=== PATIENT | female | born 1960 | race Caucasian/White ===

== ENCOUNTER 2017-07-18 21:26 | Observation (INO) ==
[2017-07-18] MEDS ORDERED: SODIUM CHLORIDE 0.9% 500 ML IV STA (22:14)
--- NOTE | 2017-07-18 23:06 | Emergency Department Note ---
ITommy Emily, am scribing for, and in the presence of, Giovani Rockwell MD 22: 37. IMoiz Charles R, MD, personally performed the services described in this documentation, ascribed by Angelina Sanders in my presence, and it is both accurate and complete . Arrival - Arrival Chief Complaint: Syncope Stated Complaint: chest pain ED Nursing Triage Note: C/O Syncopal episodes on and off x 2 weeks. Pt reports that it happened today and her blood pressure was low. Pt reports that she has had an EKG, CT scan of the brain and a holter monitor was placed- Pt states that the results of the holter monitor haven't come back yet. Mode of Arrival: Ambulatory Limitations: No Limitations Source: Patient, Family Time Seen by Provider: 07/18/17 22:04 - History of Present Illness HPI Narrative: Pt is a 56 y/o female who came to ED for further evaluation of syncopal episodes that started "a while ago" but has worsened in past month. Pt notes she cannot have any exertion or stand without getting lightheaded, vision changes to blurry, weakness sets in and then passing out. Pt has a few seconds until she can recover from syncopal episode and if standing or has movement she has routine again of passing out. Pt had active syncopal episode when sat up in bed, and immediately getting lightheaded. Pt reports having no pains in ED, not even chest pain. During episode pt's heart rate increases. Pt was at work today with syncopal episodes increased and reports BP dropping fast. Pt also had syncopal episode in waiting room and in triage. Pt reports being put on holter monitor last week and taken off , in which has not received results yet from Dr. Hendrix in [place], [place]. Pt denies ever having an ECHO done. Pt smokes a pack of cigarettes every 2 days. Son reports pt having sxs once every 5-6 months for a while, but nothing has happened back to back like the recent two weeks. Onset (ago): unknown (worsened in last month's timeframe) Consistency: constant, intermittent Severity: moderate Severity scale (1-10): 6 Quality: other (weakness) Date of Last Menstrual Period: PM Allergies/Adverse Reactions: Allergies Allergy/AdvReac Type Severity Reaction Status Date / Time No Known Allergies Allergy Verified 07/18/17 21:38 Home Medications: Home Medications Medication Instructions Recorded Confirmed Type Amoxicillin/Clav Tab [Augmentin 875 mg PO BID 07/18/17 07/18/17 History Tab] Aspirin [Ecotrin] 81 mg PO DAILY 07/18/17 07/18/17 History Multivitamin [Multivitamins] 1 each PO DAILY 07/18/17 07/18/17 History Review of System - Review of System 12 point system: reviewed and no additional remarkable complaints except as stated - Review of System Constitutional: Present: weakness. Absent: chills, fever Eyes: Present: vision change (blurry) Respiratory: Absent: respiratory distress Cardiovascular: Present: syncope (several). Absent: chest pain Gastrointestinal: Absent: abdominal pain, nausea Genitourinary female: Absent: dysuria Musculoskeletal: Absent: back pain Skin: Absent: rash Neurological: Present: other (lightheadedness). Absent: headache, confusion Medical,Surgical,& Family Hx - Social History Smoking Status: Current every day smoker Frequency of Alcohol Use: None Type of Drug Use: None Exam Vital Signs: Vital Signs Temperature 98.7 F 07/18/17 21:39 Pulse Rate 83 07/18/17 22:05 Respiratory Rate 20 07/18/17 22:05 Blood Pressure 118/58 07/18/17 22:05 O2 Sat by Pulse Oximetry 97 07/18/17 22:05 - General General appearance: alert, in no apparent distress - Head Head exam: Present: atraumatic, normocephalic - Eye Eye exam: Present: PERRL, EOMI, nystagmus (with easily reproducible syncope upon sitting up in bed) - ENT ENT exam: Present: mucous membranes moist. Absent: mucous membranes dry - Neck Neck exam: Present: full ROM, trachea midline - Chest Chest inspection: Present: symmetric chest wall rise. Absent: tenderness - Respiratory Respiratory exam: Present: rhonchi (bilateral), wheezes - Cardiovascular Cardiovascular exam: Present: tachycardia (only increasing with reproducible syncope of sitting up in bed), murmur (2 out of 6) - Extremities Exam Extremities exam: Present: full ROM. Absent: pedal edema - Neurological Exam Neurological exam: Present: alert, oriented X3, CN II-XII intact, other (astatic ). Absent: motor sensory deficit - Psychiatric Psychiatric exam: Present: normal affect, normal mood - Skin Skin exam: Present: warm, dry Course - Consultations Consultation #1: Hospitalist will admit patient Time: 00:24 Results - Labs CBC & BMP: 07/18/17 23:02 07/18/17 23:02 Lab Results: I have reviewed the patients labs Labs: Laboratory Tests 07/18/17 07/18/17 23:02 23:02 WBC 7.6 RBC 4.48 Hgb 13.8 Hct 40.0 Plt Count 241 Neut % (Auto) 34.2 L Baso % (Auto) 0.9 H Urine Color Colorless Urine Appearance Clear Urine pH 7.0 Ur Specific [place] 1.001 Urine Blood Negative Urine Nitrate Negative Urine Urobilinogen < 2.0 H Urine Leukocytes Negative Ur Squamous Epith Cells Occasional Laboratory Tests 07/18/17 07/18/17 07/18/17 23:02 23:02 23:02 Sodium 142 Potassium 3.6 Chloride 107 Carbon Dioxide 30 Creatinine 0.80 BUN/Creatinine Ratio 18.00 Alkaline Phosphatase 104 Troponin I < 0.015 B-Natriuretic Peptide 12 Urine Opiates Screen Negative Ur Barbiturates Screen Negative Ur Phencyclidine Scrn Negative U Amphetamine/Methamph Negative U Benzodiazepines Scrn Negative U Cocaine Metab Screen Negative U Cannabinoids Screen Negative - Diagnostic Findings Procedure: CT - chest: image reviewed by me, report reviewed by me (CT PE negative), CT: image reviewed by me, report reviewed by me (CT head negative) Disposition Clinical Impression: Syncope and collapse, Tobacco abuse Case discussed with: patient, patient's family Disposition: Still a Patient Condition: Stable Time of Disposition: 00:25
[2017-07-18 23:15] LABS: Basophils # 0.1 10*3/uL (0.0-0.2); Basophils % 0.9 % (0.0-0.8); Eosinophils # 0.4 10*3/uL (0.0-0.87); Eosinophils % 4.7 % (0.00-10.9); Hemoglobin 13.8 GM/DL (12.0-16.0); Immature Granulocytes % 0.3 %; Immature Granulocytes Absolute 0.02 #; Lymphocytes # 3.8 10*3/uL (1.4-4.0); Lymphocytes % 50.5 % (21.3-54.2); Mean Corpuscular HGB Conc 34.5 GM/DL (32-36); Mean Corpuscular Hemoglobin 31 PG (27-34); Mean Corpuscular Volume 89.3 FL (87-102); Monocytes # 0.7 10*3/uL (0.11-0.8); Monocytes % 9.4 % (1.7-12.7); Neutrophils # 2.6 10*3/uL (1.4-7.4); Neutrophils % 34.2 % (38.7-73.9); Platelet Count 241 T/CUMM (130-400); Red Blood Count 4.48 MC/CUMM (3.8-5.5); Red Cell Distribution Width 13.8 % (9.3-17.3); White Blood Count 7.6 T/CUMM (4-12)
[2017-07-18 23:28] LABS: Apearance,Urine CLEAR (Clear); Bilirubin,Urine Negative (Negative); Blood, Urine Negative (Negative); Glucose,Urine (UA) Negative (Negative); Ketones,Urine Negative (Negative); Nitrite,Urine Negative (Negative); Protein,Urine Negative; Squamous Epithelial Cell,Urine Occasional /HPF (0-10); Urine Color Colorless (Yellow); Urine Specific Gravity 1.001 (1.001-1.035); Urine Urobilinogen < 2.0 EU/DL (0.2-1.0)
[2017-07-18 23:30] LABS: Alanine Aminotransferase 20 U/L (13-56); Albumin 3.6 G/DL (3.4-5.0); Alkaline Phosphatase 104 U/L (45-117); Aspartate Amino Transferase 23 U/L (0-37); Bilirubin,Total < 0.39 MG/DL (0.2-1.0); Blood Urea Nitrogen 15 MG/DL (7-18); Calcium 8.7 MG/DL (8.5-10.1); Glucose 103 MG/DL (74-106); Magnesium 2.2 MG/DL (1.8-2.4); Osmolality,Calculated 283.1 MOS/KG (273-304); Potassium 3.6 MMOL/L (3.5-5.1); Sodium 142 MMOL/L (136-145); Total Protein 6.8 G/DL (6.4-8.3); Troponin I Only < 0.015 NG/ML (0.00-0.045)
[2017-07-18 23:53] LABS: Barbiturates Screen,Urine Negative (Negative); Benzodiazepines Screen,Urine Negative (Negative); Cannabinoid Screen,Urine Negative (Negative); Opiate Screen,Urine Negative (Negative); Phencyclidine Screen,Urine Negative (Negative)
[2017-07-19] MEDS ORDERED: ACETAMINOPHEN 325 MG TABLET PO PRN (01:12)
[2017-07-19] MEDS ORDERED: ONDANSETRON 4 MG/2 ML VIAL IV PRN (01:12)
--- NOTE | 2017-07-19 01:55 | Hospitalist History & Physical ---
Assessment and Plan - Time spent with patient Time spent with patient: Greater than 30 minutes (1) Syncope and collapse Status: Acute Assessment and plan: Admit to hospitalist services. Telemetry. Obtain Holter monitor records from [facility]. Fall precautions. Hydrate with NS at 125 ml/hr. Obtain Echo and US carotid doppler. Current Visit: Yes (2) Tobacco abuse Status: Acute Assessment and plan: Three minutes were spent discussing smoking cessation with patient. She reports that she knows she needs to quit and has decreased how much she smokes to 1/3 ppd. Current Visit: Yes (3) DVT prophylaxis Status: Acute Assessment and plan: Lovenox 40 mg SQ daily. Current Visit: Yes History of Present Illness Chief complaint: Syncope History of present illness: Ms. Rabago is a 56 year old female with no reported past medical history who presented the ED tonight with complaints of frequent syncopal episodes. Ms. Rabago reports that she has had to picked up from work 3-5 times over the last 3 weeks due to syncopal episodes and had one at home prior to arrival. The ERP reports that he was able to reproduce episodes when making the patient sit up and stand. Ms. Rabago states that during an episode, she will be standing and suddenly feel dizzy, weak and sweaty. Sometimes she is able to sit down and sometimes she falls. She reports that she is aware of her surroundings throughout the event. Symptoms are relieved after spending some time sitting. Her family reports that she started having these episodes occasionally several years ago, but then they stopped for a couple of years and resumed about 2 months ago. They report that the frequency of episodes has increased and that she now has some events when changing from lying to sitting position. She has recently undergone 24 hour Holter monitoring at [facility] but has not received a report back yet. She denies associated chest pain, palpitations, nausea, or vomiting. But she does complain of frequent, intermittent left frontal headaches , especially after an episode. Her lab work in the ED was completely unremarkable. Currently she is lying in bed in no apparent distress and reports only dizziness when changing positions. Hospitalist services were consulted, and the patient will be admitted for further evaluation and treatment. Her home medications have been reviewed and reconciled. She is a full code. Home Medications Medication Instructions Recorded Confirmed Type Amoxicillin/Clav Tab [Augmentin 875 mg PO BID 07/18/17 07/18/17 History Tab] Aspirin [Ecotrin] 81 mg PO DAILY 07/18/17 07/18/17 History Multivitamin [Multivitamins] 1 each PO DAILY 07/18/17 07/18/17 History Allergies Allergy/AdvReac Type Severity Reaction Status Date / Time No Known Allergies Allergy Verified 07/18/17 21:38 Medical,Surgical,& Family Hx - Medical History Medical History: noncontributory (Past medical history was extensively reviewed with the patient, and she denies any past medical problems.) - Surgical History Reproductive Surgeries: Surgical HX of;: Tubal Ligation - Family History Family History: Reports;: Family Cancer, Family Diabetes, Family Heart Disease, Family Hypertension - Social History Smoking Status: Current every day smoker Have you smoked in the last 12 months: Yes (11/03 ppd) Time spent discussing smoking cessation with patient: 3 to 10 minutes (3 minutes were spent discussing smoking cessation with the patient.) Frequency of Alcohol Use: None Type of Drug Use: None Marital Status: Lives With:: Sibling (sister) Functional capacity: independent ambulation 12 point system: reviewed and no additional remarkable complaints except as stated - Constitutional Constitutional: Present: headache(s), weakness. Absent: chills, fever(s), lethargy, malaise - EENT Eyes: Absent: blurry vision, diplopia, loss of vision Ears: Present: other (Currently being treated with Augmentin for ear infection. 3 tablets left in regimen. ). Absent: decreased hearing, ear discharge, ear pain Nose, mouth and throat: Present: headache(s) - Cardiovascular Cardiovascular: Present: diaphoresis, lightheadedness. Absent: chest pain at rest, chest pain with activity, dyspnea, dyspnea on exertion, edema, orthopnea, palpitations - Respiratory Respiratory: Absent: cough, dyspnea, wheezing - Gastrointestinal Gastrointestinal: Absent: abdominal pain, constipation, diarrhea, nausea, vomiting - Genitourinary Genitourinary: Absent: dysuria, flank pain, urinary frequency - Musculoskeletal Musculoskeletal: Absent: arthralgias, joint swelling, muscle weakness, myalgias - Neurological Neurological: Present: dizziness, headache(s), syncope - Psychiatric Psychiatric: Absent: anxiety, depression - Endocrine Endocrine: Absent: cold intolerance, polydipsia, polyphagia, polyuria - Hematologic/Lymphatic Hematologic/Lymphatic: Absent: easy bleeding, easy bruising Exam - Constitutional Vitals: Period Temp Pulse Resp BP Sys/Gates Pulse Ox Last 24 Hr 98.7 F 80-88 16-20 105-128/58-80 95-100 Exam: Constitutional System: Afebrile. Awake, alert, and oriented. No distress. No tremulousness. Head: Normocephalic, atraumatic. Ears, Nose and Throat System: No pain or tenderness. No epistaxis or discharge Eyes System: Pupils equal, round, and reactive. Extraocular muscles intact. Neck: Supple, without adenopathy, No jugular venous distention. No thyromegaly, neck mass, or prior surgery apparent. Respiratory System: Left posterior expiratory wheezing. Cardiovascular System: Heart with regular rate and rhythm. No murmur. GI System: Abdomen soft, nontender. Normo active bowel sounds present. Musculoskeletal System: Limbs with no pedal edema. Full distal pulses. Normal capillary refill. Neurological System: No discernable sensory deficit. No aphasia Psychiatric System: Conversation is rational Results - Labs CBC & BMP: 07/18/17 23:02 07/18/17 23:02 Lab Results: I have reviewed the past 24 hour labs - Diagnostic Findings Procedure: CT - chest: report reviewed by me (No acute findings), CT: report reviewed by me (Head: no acute findings)
[2017-07-19] MEDS ORDERED: ENOXAPARIN 40 MG/0.4 ML SYRINGE ONE (02:09)
[2017-07-19] MEDS: SODIUM CHLORIDE 0.9% 1,000 ML IV SCH ×2 (02:19→11:10)
[2017-07-19] MEDS: ENOXAPARIN 40 MG/0.4 ML SYRINGE SUBCUT SCH (02:20)
[2017-07-19 03:09] LABS: Band Neutrophils 1 % (0-10); Eosinophils 4 % (0-10); Lymphocytes 46 % (20-55); Platelet Estimate Normal; Reactive Lymphocytes Few; Segmented Neutrophils 43 % (50-85); Total Cells Counted 100
--- NOTE | 2017-07-19 06:59 | CT Report ---
CT head/brain wo con Indication: Syncope Comparison: None Technique: Multiple axial tomographic images of the brain were obtained without the use of intravenous contrast. Findings: Midline structures are nondisplaced. There is no convincing evidence of acute intracranial hemorrhage . No convincing evidence of hydrocephalus. Mild global volume loss present. Mild periventricular and subcortical hypoattenuation noted which is nonspecific but consistent with chronic microvascular ischemic change. Demyelinating process and vasculitis less likely considerations. The visualized paranasal sinuses and bilateral mastoid air cells are predominantly clear. IMPRESSION: No acute intracranial abnormality demonstrated. Probable mild chronic microvascular ischemic change and volume loss. Preliminary report was issued by [facility]. The CT exam was performed using one or more of the following dose reduction techniques: Automated exposure control, adjustment of the mA and/or kV according to patient size, or use of iterative reconstruction technique. PROCEDURE INTERPRETED AT [facility] DEPARTMENT OF RADIOLOGY Final Report Signed by: Dr Rocael Cortez
--- NOTE | 2017-07-19 07:03 | CT Report ---
CT chest PE study Indication: SOB Comparison: None Technique: Multiple axial tomographic images of the chest were obtained after the administration of 80 cc Omnipaque 350 intravenous contrast. PE protocol followed. Coronal and sagittal maximum intensity projection images provided. Findings: No segmental or larger pulmonary embolism demonstrated. Mild atherosclerotic calcifications demonstrated. Heart size appears within normal limits. Mildly prominent nonspecific right hilar lymph nodes. Mild dependent change of the lungs present. 3.1 cm left adrenal lesion with Hounsfield units of approximately 6 most likely reflects adenoma. Visualized osseous and surrounding soft tissue structures demonstrate no acute abnormality. Scattered degenerative change of the spine present. IMPRESSION: No segmental or larger pulmonary embolism demonstrated. Preliminary report was issued by [facility]. The CT exam was performed using one or more of the following dose reduction techniques: Automated exposure control, adjustment of the mA and/or kV according to patient size, or use of iterative reconstruction technique. PROCEDURE INTERPRETED AT [facility] DEPARTMENT OF RADIOLOGY Final Report Signed by: Dr Rocael Cortez
--- NOTE | 2017-07-19 07:54 | Ultrasound Report ---
US carotid duplex BI Indication: Syncope. Comparison: None. Technique: Multiple longitudinal and transverse real-time sonographic images of the bilateral carotid arterial systems are obtained with grayscale, spectral, and color Doppler analysis. Findings: Peak systolic velocities within the right CCA, proximal ICA, and distal ICA are 57, 63, and 93 cm/s respectively. Peak systolic velocities within the left CCA, proximal ICA, and distal ICA are 62, 48, and 66 cm/s respectively. ICA/CCA ratios on the right and left are 1.6 and 1.1 respectively. Antegrade flow demonstrated within the bilateral vertebral arteries. Grayscale imaging demonstrates mild to moderate bilateral atherosclerotic plaque. IMPRESSION: No convincing sonographic evidence of significant (50% or greater) narrowing of either cervical internal carotid artery. Indirect NASCET criteria utilized. PROCEDURE INTERPRETED AT [facility] DEPARTMENT OF RADIOLOGY Final Report Signed by: Dr Rocael Cortez
--- NOTE | 2017-07-19 08:13 | EKG Report ---
Stationary ECG Study [facility] ER Test Date: 07/18/2017 9:35:02 PM Pat Name: VIRGIL AGUDELO Department: Room: 296 Gender: F Team Leader: kandy : 1960 Requested by: Giovani Anaya Order Number: [id number] Reading MD: RAE BAILEY Intervals [place] Rate: 76 P: 77 UT: 154 QRS: 57 QRSD: 91 T: 75 QT: 389 QTc: 420 Interpretive Statements SINUS RHYTHM Electronically Signed On 07-19-17 18:46:00 CDT by RAE BAILEY [email or web address]
--- NOTE | 2017-07-19 08:25 | XRay Report ---
Exam: XR chest 1V portable Date: 07/18/2017 10:14 PM Indication: Shortness of breath Comparison: None Technical: AP Findings: External cardiac leads are present. The heart is normal in size. Degenerative change present thoracic spine. No obvious effusion. Mediastinum is intact. Minimal interstitial thickening in the right base and ossification of costochondral cartilage Impression: 1. Mild interstitial thickening in the right medial base could possibly represent early infiltrate with ossification of costochondral cartilage also present. Two-view chest may be beneficial PROCEDURE INTERPRETED AT [facility] DEPARTMENT OF RADIOLOGY Final Report Signed by: Dr. Brijesh White
[2017-07-19] MEDS: ASPIRIN EC 81 MG TABLET PO SCH (09:24)
[2017-07-19] MEDS: AMOXICILLIN/CLAV 875 MG TABLET PO SCH ×2 (09:24→21:51)
[2017-07-19] MEDS: MULTIVITAMIN (CENTRUM) TABLET PO SCH (09:24)
--- NOTE | 2017-07-19 17:47 | ECHO Report ---
[facility] Exam Date: 07/19/2017 11:35 Referring Physician: Technologist: иван Wick ARDMS, RVT Age: 56 Ht (in): 63 Wt (lb): 139 Gender: F Exam Location: [facility] Echo Indications: Syncope and collapse, Tobacco abuse BP: 119 / 49 HR: 75 Rhythm: Sinus Technical Quality: Average IMPRESSIONS Left ventricular ejection fraction is estimated at 60 %. Tricuspid regurgitation velocities suggest a RVSP of 25 mmHg plus the right atrial pressure. Diastolic parameters are most consistent with Grade 2 diastolic dysfunction or pseudonormalization. MEASUREMENTS (Male / Female) Normal Values 2D ECHO LV Diastolic Diameter PLAX 4.2 cm 4.2 - 5.9 / 3.9 - 5.3 cm LV Systolic Diameter PLAX 2.8 cm LV Fractional Shortening PLAX 34.7 % IVS Diastolic Thickness 0.9 cm 0.6 - 1.0 / 0.6 - 0.9 cm LVPW Diastolic Thickness 1.0 cm 0.6 - 1.0 / 0.6 - 0.9 cm RV Internal Dim ED PLAX 3.0 cm Aortic Root Diameter 2.6 cm LA Systolic Diameter LX 2.6 cm 3.0 - 4.0 / 2.7 - 3.8 cm DOPPLER TR Peak Velocity 251.0 cm/s TR Peak Gradient 25.2 mmHg FINDINGS Left Ventricle Normal left ventricular cavity size. Normal left ventricular wall thickness. Left ventricular ejection fraction is estimated at 60 %. Diastolic parameters are most consistent with Grade 2 diastolic dysfunction or pseudonormalization. Right Ventricle The right ventricle is normal in size and function. Right Atrium The right atrium is normal in size. Left Atrium The left atrium is normal in size. Mitral Valve Morphologically normal mitral valve without significant stenosis or prolapse. There is no mitral regurgitation. Aortic Valve Morphologically normal aortic valve without significant sclerosis or stenosis. There is no aortic regurgitation. Tricuspid Valve Morphologically normal tricuspid valve. Trace tricuspid valve regurgitation. Tricuspid regurgitation velocities suggest a RVSP of 25 mmHg plus the right atrial pressure. Pulmonic Valve Morphologically normal pulmonic valve. Mild pulmonary valve regurgitation with and EDV of 1.5 m/sec. Pericardium Normal pericardium without effusion. Aorta Normal ascending aorta dimension. Elmira Corral (Electronically Signed) Final Date: 19 July 2017 17:46
[2017-07-20] MEDS: ENOXAPARIN 40 MG/0.4 ML SYRINGE SUBCUT SCH (03:51)
[2017-07-20] MEDS ORDERED: PNEUMOCOCCAL VACCINE (23 VALENT) 0.5 ML VIAL IM ONE (04:11)
[2017-07-20 06:44] LABS: Calcium 8.1 MG/DL (8.5-10.1); Magnesium 2.3 MG/DL (1.8-2.4); Osmolality,Calculated 284.8 MOS/KG (273-304)
[2017-07-20] MEDS ORDERED: VITAMIN E 400 UNIT CAPSULE PO SCH (09:00)
[2017-07-20] MEDS ORDERED: CHOLECALCIFEROL 1,000 UNIT TABLET PO SCH (09:00)
[2017-07-20] MEDS: MULTIVITAMIN (CENTRUM) TABLET PO SCH (09:24)
[2017-07-20] MEDS: AMOXICILLIN/CLAV 875 MG TABLET PO SCH (09:24)
[2017-07-20] MEDS: ASPIRIN EC 81 MG TABLET PO SCH (09:25)
[2017-07-20 11:48] VITALS: BP 112/58
--- NOTE | 2017-07-20 13:10 | Discharge Summary ---
Hospital Course - Hospital Course Hospital Course: The patient was admitted to the hospital with spells of dizziness. The patient had recent sinus infection and inner ear infection. The patient was observed in the hospital with cardiac monitoring for 24 hours. The patient did not have any evidence of arrhythmia. Echocardiogram revealed ejection fraction 60% without wall motion abnormality. Carotid Doppler study revealed no evidence of important carotid stenosis. The patient was feeling better the following day and is now ready for discharge home. Physical examination reveals chest clear, abdomen soft, heart has regular rate and rhythm. Patient medications were reconciled upon admission, and again at the time of discharge. The patient was screened for tobacco use and found to be a [occasional smoker]. The patient was given 4 minutes of tobacco avoidance education. The patient's medical decsion maker is [themself], and when asked, they asked to be [Full code]. Discharge Time was 31 minutes, including final examination, evaluation and planning, education, reconciliation of medications, writing prescriptions, coordinating care with porter sample case, and preparing discharge documentation. - Time spent with patient Time with patient DS: Greater than 30 minutes Time spent discussing smoking cessation with patient: 3 to 10 minutes Diagnosis - Discharge Diagnosis (1) Tobacco abuse Status: Acute Discharge Plan - Discharge Data Disposition: Disch To Home/Self Care Condition at Discharge: Stable Discharge Diet: advance to your usual diet Activity: resume usual activities as tolerated - Discharge Medications Continue Amoxicillin/Clav Tab [Augmentin Tab] 875 mg PO BID Multivitamin [Multivitamins] 1 each PO DAILY Calcium Carbonate/Vitamin D3 [Calcium 600-Vit D3 800 Tablet] 1 each PO DAILY Vitamin E 400 unit PO DAILY Aspirin [Ecotrin] 81 mg PO DAILY Cholecalciferol (Vitamin D3) [Vitamin D3] 1,000 unit PO DAILY - Follow Up or Referral Follow Up: Your,PCP [Other] - 2 Weeks - Forms/Instructions Exam - Constitutional Vitals: Period Temp Pulse Resp BP Sys/Gates Pulse Ox Last 24 Hr 97.0 F-98.2 F 63-75 14-20 101-139/55-66 96-98 Discharge Results Labs on day of discharge: Labs from last 24 hours 07/20/17 04:28 Sodium 144 Potassium 4.0 Chloride 111 H Carbon Dioxide 27 Anion Gap 10.0 BUN 13 Creatinine 0.60 GFR Calculation 98 BUN/Creatinine Ratio 21.00 H Glucose 80 Calculated Osmolality 284.8 Calcium 8.1 L Magnesium 2.3 DS: Provider Date of admission: 07/19/17 00:27 Primary care physician: . No PCP Attending physician on admission: Brijesh Carter MD Consults: 07/19/17 16:42 Consult to Occupational Therapy [CONS] Routine Reason for Occupational Therapy: Evaluate and Treat Consult to Physical Therapy [CONS] Routine Reason for Physical Therapy: Weakness 07/19/17 16:44 Consult to Physician [CONS] Routine Comment: gardenia Consulting Provider: Johny Armijo Person Notified: Elisabeth Date Notified: 07/20/17 Time Notified: 09:00 Discharging clinician: Everardo Byrd MD
== END 2017-07-20 13:53 | disposition home or self-care (01) ==
LOC: N.ED 21:26 → INTOOBSV 07-19 00:27 → OBSVTOIN 07-19 01:04 → N.EDINP 07-19 02:36 → SUATTDRO 07-19 02:36 → N.TELEN 07-19 02:44
PROVIDERS: ADMIT Hospitalist; ATTEND Internal Medicine